=== PATIENT | female | born 1990 | race Caucasian/White ===

== ENCOUNTER 2016-09-19 10:40 | Inpatient (IN) | payer OTHER ==
[~2016-09-19] VITALS: Ht 170.2 cm; Wt 65.3 kg
[2016-09-19] MEDS ORDERED: Carboprost 250 mCg/mL Inj IM PRN ×2 (10:55→13:30)
[2016-09-19] MEDS ORDERED: Hemorrhage Kit, Post Partum XX ONE ×2 (10:55→13:30)
[2016-09-19] MEDS ORDERED: Sodium Chloride LOK Flush 10 mL Syringe IVFLUSH PRN (10:55)
[2016-09-19] MEDS ORDERED: Oxytocin 30 Units/500 mL LR 30 UNITS in IV Premix 1 EACH IV PRN ×2 (10:55→13:30)
[2016-09-19] MEDS ORDERED: Methylergonovine 0.2 mg/mL Inj IM PRN ×2 (10:55→13:30)
[2016-09-19] MEDS ORDERED: Oxytocin 10 Unit/mL Inj IM PRN ×2 (10:55→13:30)
[2016-09-19] MEDS: Lactated Ringer's 1,000 ML IV PRN ×2 (11:23→12:24)
[2016-09-19 11:24] LABS: Mean Corpuscular Hemoglobin 26.7 pg (27.0-35.0); Mean Corpuscular Volume 85.7 fL (81-100)
[2016-09-19] MEDS ORDERED: Lactated Ringer's 500 ML IV ONE (11:47)
[2016-09-19] MEDS ORDERED: Lactated Ringer's 1,000 ML IV SCH ×2 (11:47→13:27)
[2016-09-19] MEDS ORDERED: EPHEDrine Sulfate 50 mg/mL Inj IVPUSH PRN (11:50)
[2016-09-19] MEDS ORDERED: Atropine 1 mg/10 mL (Code) Syringe IVPUSH PRN (11:50)
[2016-09-19] MEDS ORDERED: fentaNYL 2 mCg/mL-Bupiv 0.125% 100 ML EPIDURAL SCH (11:50)
[2016-09-19] MEDS ORDERED: Ondansetron 2 mg/mL 2 mL Inj IVPUSH PRN (11:50)
--- NOTE | 2016-09-19 12:19 | PCM.HPANE ---
Patient Data Surgeon Admitting Provider:Nam Langston MD Attending Provider:Nam Langston MD Primary Care Physician:Nam Langston MD Other Provider:Dilcia Pena Anesthesia Reason for Visit Term Early Labor TERM EARLY LABOR Ht/WT & BMI Body Mass Index Allergies Coded Allergies: No Known Allergies (Unverified , 09/19/16) Past Anesthesia History Anesthesia History: Denies:: Abnormal Airway, Anesthesia Reactions, Difficult Intubation, Fam Anesthesia Reaction, Fam Malignant Hypertherm, Malignant Hyperthermia Diabetes History Hx Diabetes?: No MRSA MRSA: No Medications Hypertension Medication: No Home Meds Incl Beta [place]: No History History of ENT Problems?: No HEENT History: Denies:: Abnormal Airway Cataracts Difficult Intubation Dysphagia Glaucoma Hearing Problem Sinus Problem TMJ Denture Type: None Teeth Condition: Within Normal Limits Hx of Heart Problems?: No Cardiovascular History: Denies:: AICD Abdominal Aortic Aneurism Atrial Fibrillation Cardiac Surgery Chest Pain Congestive Heart Failure Coronary Artery Disease Edema Heart Murmur Hypertension Irregular Heartbeat Pacemaker Peripheral Vascular Rheumatic Fever Thrombophlebitis Valvular Heart Disease Hx of Respiratory Problem?: No Respiratory History: Denies:: Asthma COPD Chest Surgery Cough Dyspnea Emphysema Hemoptysis Oxygen Administration Pneumonia Pulmonary Embolism Tuberculosis Use of C-PAP Machine Use of Inhalers / NEBS Hx Neurologic Problems?: No Hx of GI Problems?: No Hx of Problems?: No HX of Peritoneal Dialysis: No Female Hx: Positive for:: Currently Hx Musculoskeletal Problems?: No Hx of Psycho/Social Problems?: No Hx Surgeries?: No Hx Any Other Health Problems?: No Hx Diabetes: No Hx Alcohol Use: NoHx Substance Use: No Smoking Status: Never Smoker Have You Smoked inLast 12 mo: No Stop/Bang Risk Assessment Category Category 1A: Patient has history of documented sleep apnea, and HAS NOT received any narcotic, sedative or anesthesia administration during this stay. Category 1B: Patient has history of documented sleep apnea, and HAS received any narcotic , sedative or anesthesia administration during this stay Category 2: Patient has SUSPECTED Obstructive Sleep Apnea, and HAS received any narcotic , sedative or anesthesia administration during this stay. Category 3: Patient has SUSPECTED Obstructive Sleep Apnea and HAS NOT received narcotic, sedative or anesthesia administration during this stay. Category 4: Outpatient in Procedural Areas with known sleep apnea or who screen positive for High Risk via the STOP/BANG questionnaire. Exam Exam General Appearance: Alert, Oriented X3 HEENT/AIRWAY: MP 2, Neck Movement (FROM) Lungs: Clear to Auscultation, Clear to Percussion Heart: Exam Unremarkable, Regular Rate/Rhythm Meds/Labs/Diagnostics Labs Test 09/19/16 11:10 White Blood Count 12.8th/mm3 (3.8-10.1) Red Blood Count 4.20mil/mm3 (3.90-5.20) Hemoglobin 11.2g/dL (12.0-15.6) Hematocrit 36.0% (35.0-46.0) Mean Corpuscular Volume 85.7fL (81-100) Mean Corpuscular Hemoglobin 26.7pg (27.0-35.0) Mean Corpuscular Hemoglobin Concent 31.1% (32.0-37.0) Red Cell Distribution Width 12.9% (12.3-15.4) Platelet Count 452bil/L (150-400) Plan Impression Patient chart reviewed, patient interviewed and anesthestic plan with risks, benefits, and alternatives discussed, and informed consent obtained. ASA Physical Status: ASA2 Mod Systemic Disease Anesthetic Plan: Epidural Bene/Risks/Altern/Consents: Yes HP Complete Prior to Induction: Yes Kobe Vazquez MD Sep 19, 2016 11:48
--- NOTE | 2016-09-19 13:10 | HP ---
[address] [address] HISTORY AND PHYSICAL PATIENT: SAURABH MEEK : 1990 MR#: [id number] ADMIT: 09/19/2016 JOB ID: [id number] CHIEF COMPLAINT: Increasing contractions at term. HISTORY OF PRESENT ILLNESS: A 26-year-old, 5, para 3, SAB 1, with an EDC of September 24, 2016 based on a 15-week ultrasound done April 02, 2016, presents in active labor at term. She notes a "false alarm" with some contractions that seemed to fade yesterday. This morning, she woke up much more uncomfortable, increased mucousy discharge, no rupture of membranes. Nursing checked her and found her to be 5 cm. She is being admitted now. She is GBS negative. PAST GYNECOLOGIC HISTORY: 5, para 3, with one being at 35 weeks. One prior spontaneous , three living children. In 2008, she delivered at 35 weeks, a 8-wyjnr-7-ounce female with growth restriction by a vaginal delivery that was very rapid. In 2009 she had an SAB. In 2010, she had a term delivery of a 7-tbudh-1-ounce male without complication, a rapid delivery. In 2013, she again had a one-hour vaginal delivery with epidural anesthesia, female in the 6-pound range. Fifth is her current one. ALLERGIES: None known. CURRENT MEDICATIONS: 1. vitamins 1 tablet daily. 2. Ferrous sulfate 325 mg 1 tablet daily. ISSUES: 1. History of very fast labors. 2. E. coli UTI in February 2016, treated. 3. Klebsiella UTI in May 2016, treated. 4. History of depression. SOCIAL HISTORY: She is . Nonsmoker. Does not drink alcohol during . Previously denied recreational drug use. FAMILY HISTORY: Notable for diabetes and hypertension in other family members. No congenital or defects. PAST MEDICAL HISTORY: 1. History of chlamydia, remote, treated. 2. Vaginal "diverticula" removed at age 19, details not available. 3. History of wisdom tooth extraction. 4. History of depression after 1st delivery. REVIEW OF SYSTEMS: She feels lots of movement. She has had no leakage of fluid. PHYSICAL EXAMINATION: Blood pressure 132/83, temperature 36.8 Celsius, pulse 107. Gravid, uncomfortable woman with regular contractions every few minutes. heart tracing shows a baseline in the 150s, initially a little bit flat with increasing variability later in the tracing and several accelerations, at least 15 x 15, consistent with a category one tracing. Tocometer shows regular contractions every 2-3 minutes. Vaginal examination performed by myself shows her to be 6 cm dilated, 100% effaced, zero station. Vertex position. Membranes feel intact. labs done outpatient show blood type B-positive, rubella immune. Serology not reactive. Hepatitis B surface antigen and HIV test negative. Antibody screen was negative at the onset of , and an A1c at that time was 4.5. Gonorrhea and chlamydial cultures were negative in August 2015 and were not repeated during this due to her low risk status. Her Pap was normal in August 2015. Urine cultures are mentioned as above and were treated with followup negative urine cultures. Hematocrit at 30 weeks was 33.8. A glucose tolerance test at that time showed a fasting of 73, a one-hour 84, two-hour 81. She is GBS negative, screened August 23, 2016. ASSESSMENT: 1. Gravid at 39-2/7 weeks gestation. 2. Active labor with a history of very fast labors. 3. Two urinary tract infections this with different organisms, both treated with followup urine cultures negative. 4. History of depression. 5. Desires epidural. PLAN: Given her history of very fast labors I recommended she have her epidural now. Anesthesia is contacted. IV fluids are being started. Otherwise anticipate expectant management. would like to participate in the delivery. We reviewed his role and interventions.
[2016-09-19] MEDS ORDERED: Witch Hazel-Glycerin Pads TOPICAL PRN (13:30)
[2016-09-19] MEDS ORDERED: Benzocaine (Dermoplast) 20% 60 Gm Spray TOPICAL PRN (13:30)
[2016-09-19] MEDS ORDERED: HYDROcodone-APAP 5-325 mg Tablet PO PRN (13:30)
[2016-09-19] MEDS ORDERED: LANOlin HPA 7 Gm Ointment TOPICAL PRN (13:30)
--- NOTE | 2016-09-19 13:47 | OP ---
[address] [address] OPERATIVE REPORT PATIENT: SAURABH MEEK : 1990 MR#: [id number] ADMIT: 09/19/2016 JOB ID: [id number] DELIVERY NOTE DATE OF DELIVER: 09/19/2016 SURGEON:Nam Langston MD Delivery position: CHRISTIE. Delivery weight: 3436 grams (7 pounds, 9 ounces) Apgars: 7 and 9. Umbilical cord: Thin, but otherwise normal-appearing, three-vessel umbilical cord; nuchal cord x1. Placenta: Normal appearance, central cord insertion. No evidence of retained fragments. EBL 100 cc. Lacerations: First-degree perineal and a very small/superficial left labial. Neither appeared to require repair. Anesthesia: Epidural. Complications: Nuchal cord x1. Patient felt an increasing urge to push. She pushed effectively, bringing the head down. heart rate decelerations with pushing only were noted with good recovery, treated with supplemental oxygen. Head delivered in CHRISTIE position. Nuchal cord was identified x1, briefly delaying delivery of the body. This was reduced and then the rest of the infant delivered without difficulty. Placenta delivered spontaneously with gentle traction on the cord after a few more minutes. Perineum was inspected and showed the very shallow tears mentioned above, not appearing to require repair. Fundus is firm. Bleeding is slowing, and IV oxytocin was instituted per protocol for third stage of labor. Sponge and needle counts are correct . Patient is in stable condition and plans to breast feed. [facility]
[2016-09-19] MEDS ORDERED: Sodium Chloride LOK Flush 10 mL Syringe IVFLUSH SCH (16:30)
[2016-09-20 06:25] LABS: Mean Corpuscular Hemoglobin 26.9 pg (27.0-35.0); Mean Corpuscular Volume 85.1 fL (81-100)
[2016-09-20] MEDS ORDERED: Ascorbic Acid 500 mg Tablet PO SCH (08:30)
--- NOTE | 2016-09-20 08:44 | PCM.DIOB ---
Obstetrical Disch Instruction Date of Service: Sep 20, 2016 Dates of Hospitalization Date of Hospital Admission Sep 19, 2016 at 10:50 Providers Admitting Physician: Nam Langston MD Primary Care Physician: Nam Langston MD Attending Physician: Nam Langston MD Discharge Diagnosis Problems: (1) Encounter for full-term uncomplicated delivery Status: Acute ICD Code: O80 (2) anemia Status: Acute ICD Code: O90.81 Diet Discharge Diet: No restrictions Activity Discharge Activity-General: No restrictions Dressing and Incisional Care Hygiene: May shower Follow Up Plan Follow-up Provider (F9): Nam Langston MD Follow-up appointment: Weeks (6) Call your provider for: Fever or Chills, Shortness of breath, Heavy vaginal bleeding, Excessive constipation, Red painful breasts Nam Langston MD Sep 20, 2016 08:44
[2016-09-20] MEDS ORDERED: IBUP-1827 PO (08:46)
[2016-09-20] MEDS ORDERED: FERR-74 PO (08:46)
[2016-09-20] MEDS ORDERED: PNV11TAB PO (08:46)
[2016-09-20] MEDS ORDERED: Ascorbic Acid PO (08:46)
[2016-09-20 11:57] VITALS: BP 107/74; PULSE 75; RESP 18
--- NOTE | 2016-09-20 16:46 | DIS ---
[address] [address] DISCHARGE SUMMARY PATIENT: SAURABH MEEK : 1990 MR#: [id number] ADMIT: 09/19/2016 JOB ID: [id number] DIS: 09/20/2016 DISCHARGE DIAGNOSES: 1. Spontaneous vaginal delivery at 39+ weeks gestation. 2. History of very fast labors. 3. History of urinary tract infection x2 this , treated. 4. History of depression with her first . DISCHARGE INSTRUCTIONS: ACTIVITY: Ad debi. May shower or bathe. Breast feed ad debi. DIET: Ad debi. FOLLOWUP: Follow up with Dr. Langston in six weeks, sooner if increased bleeding, breast pain, excessive constipation, fever, shortness of breath, etc. DISCHARGE MEDICATIONS: 1. vitamins 1 tablet daily. 2. Ferrous sulfate 325 mg twice daily for six weeks. 3. Vitamin C 500 mg p.o. b.i.d. for six weeks. 4. Ibuprofen 600 mg q.6 h. p.r.n. pain. HOSPITAL COURSE: The patient is a 26-year-old, now 5, para 4, SAB 1, who presented at 39+ weeks gestation in active labor. She was GBS negative. She received an epidural and went on to have an uncomplicated vaginal delivery of a 7 pound 9 ounce viable female without significant complication. , she is caring for her infant well. Her hematocrit was noted to drop from 36.0 to 28.5, and so I have started her on iron for six weeks. She will follow up in my office, sooner if problems. [facility]
== END 2016-09-20 13:34 | disposition home or self-care (01) | DRG 560 ==
LOC: FBCO 10:40 → FBC 10:50
PROVIDERS: ADMIT Family Medicine; ATTEND Family Medicine
PROC: 10E0XZZ Delivery of Products of Conception, External Approach (ICD-10-PCS; principal; 2016-09-19)
PROC: 0HQ9XZZ Repair Perineum Skin, External Approach (ICD-10-PCS; 2016-09-19)
DX: O70.0 First degree perineal laceration during delivery (principal); O69.81X0 Labor and delivery complicated by cord around neck, without compression, not applicable or unspecified; Z3A.39 39 weeks gestation of pregnancy; Z37.0 Single live birth